=== PATIENT | male | born 1935 | race Caucasian/White ===

== ENCOUNTER 2017-12-27 17:33 | Inpatient (IN) | payer OTHER ==
[~2017-12-27] VITALS: Ht 177.8 cm; Wt 87.3 kg
[2017-12-27] VITALS (27 sets, daily range): BP systolic 82–142; BP diastolic 41–78; BMI 31.5
--- NOTE | ~2017-12-27 | CN ---
PATIENT NAME:ISELA YUNG MEDICAL RECORD: [id number] : 37 LOCATION:[facility]2309 ADMIT DATE: 12/27/17 ACCOUNT: [id number] CONSULTING PHYSICIAN: KAY MORENO MD REFERRING PHYSICIAN: JESSICA MARTINEZ MD DATE OF CONSULTATION: 12/31/2017 Cardiology Consultation DIAGNOSES: 1. Paroxysmal atrial fibrillation. 2. Pulmonary emboli. 3. Deep venous thrombosis. 4. Anticoagulation. HISTORY OF PRESENT ILLNESS: Mr. Yung presents with shortness of breath, found to have pulmonary emboli as well as found to have deep vein thrombosis. He has had episodes of heart rates up to the 200. This is an SVT versus an atrial fibrillation. He was started on sotalol. He has had no further episodes. His echocardiogram was with normal ejection fraction, normal left atrial chamber size. PHYSICAL EXAMINATION: GENERAL APPEARANCE: Well-nourished, well-developed, appears stated age. Level of distress, comfortable. PSYCHIATRIC: Mental status, alert, normal affect. Orientation, oriented to time, place and person. EYES: Lids and conjunctiva, noninjected. No discharge, no pallor. ENT: Lips, teeth, gums, normal dentition. Oropharynx, no cyanosis, no pallor. NECK: Carotid arteries, bilateral normal upstroke, no bruits, no thrills. JUGULAR VEINS: No jugular venous pressure or distention. CERVICAL LYMPH NODES: Nontender, nonenlarged. THYROID: Not enlarged. Nontender. No nodules. LUNGS: Respiratory effort, unlabored. CHEST: Normal curvature. No thoracic deformity. No chest wall tenderness. Percussion, resonant. Auscultation, clear. No wheezes, no rales, no rhonchi. CARDIOVASCULAR: Precordial exam, nondisplaced. No heaves or pericardial thrills. Rate and rhythm, regular. Heart sounds, normal S1, normal S2. No S3, no gallop, no rub. Systolic murmur, not heard. Diastolic murmur, not heard. EXTREMITIES: No cyanosis, no edema. Peripheral pulses, full and equal in all extremities, except as noted. No bruits appreciated. ABDOMEN: Soft, nondistended. Normal aorta. No bruit. Nontender. No masses. Liver, nontender, no hepatomegaly. Spleen, nontender, no splenomegaly. MUSCULOSKELETAL: No joint tenderness. No joint swelling. No erythema. NEUROLOGICAL: Normal gait, normal strength, normal tone. SKIN: Warm and dry. OVERALL IMPRESSION: Supraventricular tachycardia, treated with sotalol stable and continue sotalol. At this time, no other cardiac workup or treatment is necessary. TRANSINT:[id number] Voice Confirmation ID: [id number] DOCUMENT ID: [id number] CONSULT REPORT [id number] ISELA YUNG, KAY FLORES at 0956 CC: [id number] DICTATION DATE: 01/01/18 0839 IMPLANT COORDINATOR: 01/01/18 1316 ADM IN [facility] [address] [place] [address]
--- NOTE | ~2017-12-27 | HEMODYNAMI ---
PATIENT:ISELA YUNG MEDICAL RECORD: [id number] : 37 LOCATION:[facility] [place] D230 ADMISSION DATE: 12/27/17 Generatedon:12/30/201712:18 Patient name: ISELA YUNG Patient #: [id number] SSN: : Date of study: 12/30/2017 Page: Of Hemodynamic Procedure Report Patient Data Patient Demographics Procedure consent was obtained First Name: ISELA Gender: Male Last Name: AGA : 1935 Patient #: [id number] Age: 82 year(s) Race: Unknown Additional ID: [id number] Contact details [address]: [address] [place] [address] State: [place] City: [place] Zip code: [address] Past Medical History Allergies Allergen Reaction Date Comments Reported Penicillins 12/30/2017 Admission Admission Data Admission Date: 12/27/2017 Admission Time: 17:33 Room #: 2309 Weight (lbs.): 209 Weight (kg.): 94.8 Procedure Procedure Types Cath Procedure Peripheral Cath Diagnostic Procedure Cath Peripheral Venography IVC/SVC Inferior Venacava Filter Procedure Description Procedure Date Procedure Date: 12/30/2017 Procedure Start Time: 11:48 Procedure Staff Name Function Slade Oliveros MD Performing Physician Joseline Self RT Corporate Fitness Program Coordinator Joseline Self RT Monitor Desi Brumfield RN Nurse Deepa Carr RN Nurse Hari Santoro RT Scrub Procedure Data Cath Procedure Fluoroscopy Diagnostic fluoroscopy Total fluoroscopy Time: 2 time: 2 min min Diagnostic fluoroscopy Total fluoroscopy dose: 273 dose: 273 mGy mGy Contrast Material Contrast Material Type Amount (ml) Isovue 300 25 Procedure Medications Medication Administration Route Dosage Fentanyl I.V. 25 mcg Versed I.V. 0.5 mg Lidocaine 1% added to field 20 Heparin Flush Bag added to field 1 bags (1000units/500ml NS) Hemodynamics Rest Heart Rate: 95 (bpm) Snapshots Pre Cath Intra NCS Post Cath Vital Signs Time Heart Resp SPO2 etCO2 NIBP (mmHg) Rhythm Pain Sedation Rate (ipm) (%) (mmHg) Status Level (bpm) 11:28:48 92 24 96 15.1 113/66(101) A-Fib 0 (11) 9(A) , No pain 11:33:00 96 25 96 14.3 129/61(97) A-Fib 0 (11) 9(A) , No pain 11:37:10 96 26 96 15.9 127/64(95) A-Fib 0 (11) 9(A) , No pain 11:41:20 100 25 97 17.4 131/64(86) A-Fib 0 (11) 9(A) , No pain 11:45:32 102 25 97 16.6 118/70(89) A-Fib 0 (11) 9(A) , No pain 11:49:36 96 23 98 18.1 108/58(87) A-Fib 0 (11) 9(A) , No pain 11:53:49 97 21 98 21.9 112/57(85) A-Fib 0 (11) 9(A) , No pain 11:57:57 109 25 97 19.6 112/60(90) A-Fib 0 (11) 9(A) , No pain 12:02:07 109 23 97 18.9 111/61(84) A-Fib 0 (11) 9(A) , No pain 12:06:09 108 23 97 18.9 106/61(88) A-Fib 0 (11) 9(A) , No pain 12:10:17 107 23 97 17.3 113/58(77) A-Fib 0 (11) 9(A) , No pain 12:14:29 105 25 95 12.1 104/53(72) A-Fib 0 (11) 9(A) , No pain Medications Time Medication Route Dose Verified Delivered Reason Notes Effect iveness by by 11:48:38 Fentanyl I.V. 25 Slade Arenas for mcg Domo Carr RN sedation 11:48:48 Versed I.V. 0.5 Slade Arenas for mg Domo Carr RN sedation 11:50:13 Lidocaine 1% added 20ml Slade June to vial Oliveros Domo herman MD, MD 11:50:25 Heparin Flush added 1 Slade June Bag to bags Oliveros Oliveros (1000units/500ml field MD FLORES NS) Procedure Log Time Note 10:49:30 Patient Weight : 209 lbs 10:50:32 Use device set IR Diagnostic 11:16:09 JOHN 180cm wire ([id number]) opened to sterile field. 11:16:10 SHEATH 5FR Amity ([id number]) opened to sterile field. 11:16:11 PERCUTANEOUS ENTRY 19GA needle opened to sterile field. 11:16:12 FILTER Tech LP Vena Cava ([id number]) opened to sterile field. 11:16:13 Tegaderm 4 x 4 (1626W) opened to sterile field. 11:16:14 Sterile Angiographic Pack opened to sterile field. 11:16:15 Bag Decanter (2001S) opened to sterile field. 11:16:23 - 11:27:18 Time tracking: Regular hours (M-F 7:00 - 5:00) 11:27:27 Plan of Care:Hemodynamics will remain stable., Cardiac rhythm will remain stable., Comfort level will be maintained., Respiratory function will remain adequate., Patient/ family verbilizes understanding of procedure., Procedure tolerated without complication., Recovers from procedure without complications.. 11:27:35 Patient received from ICU to IR Alert and oriented. Tansferred to table in Supine position. 11:27:39 Correct patient and procedure confirmed by team. 11:27:42 Signed procedure consent form obtained from patient. 11:27:44 ECG and BP/O2 sat monitors applied to patient. 11:27:46 Vital chart was started 11:27:47 Baseline sample Acquired. 11:27:49 Full Disclosure recording started 11:27:50 - 11:27:57 H&P Date Dictated: 12/30/2017 Within 30 days and on chart.. 11:27:58 Pre-procedure instructions explained to patient. 11::59 Pre-op teaching completed and patient verbalized understanding. 11::02 Family in waiting room. 11::04 Patient NPO since Midnight. 11::28 Patient allergic to Penicillins 11:28:33 Is the patient allergic to Iodine/contrast media? No. 11::37 Is patient on blood thinner?Yes 11::44 ACC The patient was administered the following blood thiners within the last 24 hours: ACCHeparin 11:28:47 Patient diabetic? Yes. 11:28:50 If diabetic: On Metformin? Yes 11:30:12 If on Metformin: Last Dose? 12/28/2017 11:30:17 - 11:30:27 ----Pre-sedation anethsthesia assessment.---- 11:30:33 Previous problem with sedation/anesthesia? No ? 11:30:36 Snore? No 11:30:38 Sleep apnea? No 11:30:41 Deviated septum? No 11:30:43 Opens mouth fully? Yes 11:30:45 Sticks out tongue? Yes 11:31:11 Airway obstruction? No but has heart disease, previous cabg 11:31:16 Dentures? No ? 11:31:32 IV patent on arrival in left forearm, port with D5/.45%NaCl at [facility]. 11:32:03 Right neck area was prepped with chlora-prep and draped in sterile fashion 11:32:12 - 11:47:09 Physician arrived 11:48:02 --------ALL STOP TIME OUT------ 11:48:03 Final Timeout: patient, procedure, and site verified with staff and physician. All members of the team are in agreement. 11:48:16 Procedure started. 11:48:30 Local anesthetic to right IJ vein with Lidocaine 1% by Slade Oliveros MD.INITIAL ACCESS ONLY 11:48:38 Fentanyl 25 mcg I.V. was administered by Deepa Carr RN; for sedation ; 11:48:48 Versed 0.5 mg I.V. was administered by Deepa Carr RN; for sedation; 11:50:08 Venous access obtained using ultrasound guidance. 11:50:13 Lidocaine 1% 20ml vial added to field was administered by Slade Oliveros MD; ; 11:50:25 Heparin Flush Bag (1000units/500ml NS) 1 bags added to field was administered by Slade Oliveros MD; ; 11:53:51 GLIDE CATHETER 5FR ANGLED 100cm (CG508) opened to sterile field. 12:08:38 Vena Tech LP IVC filter was placed below renal veins. 12:08:47 Procedure ended.(Physican Out) 12:08:55 Fluoroscopy time 02.00 minutes. 12:08:59 Fluoroscopy dose: 273 mGy 12:08:59 Flurop Dose total: 273 12:09:23 Contrast amount:Isovue 300 25ml. 12:09:25 Procedure and supply charges have been captured, reviewed, submitted an d are correct. 12:17:52 Report given to ICU. 12:18:26 Vital chart was stopped Device Usage Item Name Manufacture Quantity Catalog Hospital Part Current Minimal Lot# / Number Charge Number Stock Stock Serial# Code JOHN 180cm [employer] 1 [id number] wire ([id number]) SHEATH 5FR Terumo 1 [id number] 160099 015928 [id number] 40 Amity ([id number]) PERCUTANEOUS [employer] 1 [id number] 550560 [id number] 5 [id number] ENTRY 19GA needle FILTER Tech B. Reyes 1 [id number] 781386 603692 847880 5 55488 LP Vena Cava ([id number]) Tegaderm 4 x 3M 1 1626W 683679 121432 513482 5 4 (1626W) Sterile Cardinal 1 [id number] 798717 5 Angiographic Health Pack Bag Decanter Microtek 1 2001S 825345 96516 259659 5 () [employer] SHAVON Terumo 1 [id number] 774726 56935 [id number] 4 CATHETER 5FR ANGLED 100cm (CG508) Signature Audit [place] Stage Time Signature Unsigned Intra-Procedure 12/30/2017 Joseline Self 12:18:15 PM RT(R) Signatures Monitor : Joseline Self RT Signature : Date : Time : [address] [place] [address]
--- NOTE | ~2017-12-27 | EC ---
PATIENT:ISELA YUNG DATE OF SERVICE: 12/27/17 SEX: M MEDICAL RECORD: [id number] DATE OF : 37 LOCATION:D[facility] D.230 AGE OF PATIENT: 82 ADMISSION DATE: 12/27/17 REFERRING PHYSICIAN: INTERPRETING PHYSICIAN: KAY GASTELUM MD ECHOCARDIOGRAM REPORT ECHO CHARGES 4 ECHO COMPLETE Date: 12/28 CLINICAL DIAGNOSIS: CARDIAC HISTORY ASSESS EF HX OF CAD/CABG ECHOCARDIOGRAPHIC MEASUREMENTS (adult normal given) AC root (d.<3.7cm) 5.2 cm LV Septum d (<1.2 cm> 1.3 cm Valve Excursion 2.1 cm LV Septum (systole) 1.5 cm Left Atria (s.<4.0cm> 3.9 cm LVPW d(<1.2cm) 1.2 cm RV (d.<2.3cm) 6.7 cm LVPW (sytole) 1.7 cm LV diastole(<5.6CM) 5.0 cm MV E-F(>70mm/sec) cm LV systole 4.0 cm LVOT Diameter 2.0 cm MV exc.(>10mm) 2.2 cm Est.ejection fraction (50-75%) % DOPPLER: LVIT cm/sec A 87.0 cm/sec E 54.0 cm/sec LA cm/sec RVSP 35 mmHg LVOT 80 cm/sec AOP1/2T 592 m/s Asc. Ao 137 cm/sec RVOT 58 cm/sec RA cm/sec PA 119 cm/sec AV Gradient Peak 7351 mmHg AV Mean 3.69 mmHg AV Area 2.1 cm MV Gradient Peak 3.95 mmHg MV Mean 1.68 mmHg MV Area cm COMMENTS: Supervisor Network Control Operators: Mia CEDILLO Multigrapher: 1 Dr. Gastelum TAPE# SUPERVISING PRODUCER Pericardial Effusion N DATE OF SERVICE: Echocardiogram FINDINGS: 1. Left ventricular chamber size is within normal limits. Left ventricular systolic function is normal. Overall ejection fraction estimated at 50%. 2. Left atrium is within normal limits at 3.9 cm. Right atrium and right ventricular chamber sizes are moderately dilated. 3. Valvular structures have normal structure and motion. ECHOCARDIOGRAM REPORT [id number] ISELA YUNG 4. Doppler interrogation reveals mild mitral regurgitation, mild tricuspid regurgitation, no other valvular insufficiency or stenosis. 5. No evidence of pericardial effusion or left ventricular thrombus. TRANSINT:[id number] Voice Confirmation ID: [id number] DOCUMENT ID: [id number] KAY GASTELUM MD at 0956 CC: [id number] DICTATION DATE: 12/29/17 1058 FOOT MITER OPERATOR: 12/29/17 1514 ADM IN [facility] [address] [place] [address]
[2017-12-27 18:56] LABS: ALBUMIN 1.5 g/dL (3.4-5.0); ANION GAP 21.7 mmol/L (8-16); BILIRUBIN - TOTAL 0.46 mg/dL (0.2-1.3); CARBON DIOXIDE 16.3 mmol/L (21.0-32.0); CREATININE - SERUM 1.2 mg/dL (0.6-1.3); PROTEIN - SERUM 4.5 g/dL (6.4-8.2)
[2017-12-27 19:00] LABS: CALCIUM 6.4 mg/dL (8.5-10.1)
[2017-12-27 19:43] LABS: HEMATOCRIT 21.9 % (42.0-54.0); MCH 31.7 pg (26.0-34.0); MCV 99.1 fL (80.0-100.0); MEAN PLATELET VOLUME 9.7 fL (7.4-10.4); PLATELET COUNT 68 10x3/uL (130-400); RBC 2.21 10x6/uL (4.20-6.10); RDW 17.4 % (11.5-14.5); WBC 22.3 10x3/uL (4.8-10.8)
[2017-12-27 20:09] LABS: EOSINOPHILS 2 % (0-7); LYMPHOCYTES 4 % (15-50); MONOCYTES 2 % (2-11); NEUTROPHILS 83 % (40-80); PLATELET ESTIMATE DECREASED
[2017-12-27 22:23] LABS: HEMATOCRIT 24.7 % (42.0-54.0); HEMOGLOBIN 7.9 g/dL (13.5-17.5); MCH 31.1 pg (26.0-34.0); MCV 97.2 fL (80.0-100.0); MEAN PLATELET VOLUME 9.6 fL (7.4-10.4); RBC 2.54 10x6/uL (4.20-6.10); RDW 17.7 % (11.5-14.5); WBC 22.7 10x3/uL (4.8-10.8)
[2017-12-27 22:31] LABS: INR 1.61 (0.85-1.17); PROTIME 18.6 SECONDS (11.6-15.0)
[2017-12-27 22:49] LABS: APTT > 200.0 SECONDS (22.8-39.4)
[2017-12-28] VITALS (89 sets, daily range): BP systolic 75–116; BP diastolic 41–93
[2017-12-28 05:45] LABS: BASOPHILS 0 % (0-2); EOSINOPHILS 0 % (0-7); HEMATOCRIT 28.7 % (42.0-54.0); HEMOGLOBIN 9.2 g/dL (13.5-17.5); IMMATURE GRANULOCYTES 4.3 % (0-5); MCH 30.6 pg (26.0-34.0); MCHC 32.1 g/dL (31.0-37.0); MCV 95.3 fL (80.0-100.0); MEAN PLATELET VOLUME 10.4 fL (7.4-10.4); MONOCYTES 5.8 % (2-11); NEUTROPHILS 82.9 % (40-80); PLATELET COUNT 70 10x3/uL (130-400); RBC 3.01 10x6/uL (4.20-6.10); RDW 18.3 % (11.5-14.5); WBC 24.3 10x3/uL (4.8-10.8)
[2017-12-28 06:00] LABS: ALBUMIN 1.4 g/dL (3.4-5.0); ALKALINE PHOSPHATASE 86 U/L (46-116); CALC OSMOLALITY 278 mosm/kg (275-300); CARBON DIOXIDE 19.2 mmol/L (21.0-32.0); CHLORIDE - SERUM 108 mmol/L (98-107); GLUCOSE 93 mg/dL (74-106); POTASSIUM - SERUM 3.8 mmol/L (3.5-5.1); PROTEIN - SERUM 4.4 g/dL (6.4-8.2); SODIUM 139 mmol/L (136-145); UREA NITROGEN 16 mg/dL (7-18); eGFR NON AFRICAN AMERICAN 76 mL/min (90-120)
[2017-12-28 06:08] LABS: ALT (SGPT) 17 U/L (10-68); CALCIUM 6.4 mg/dL (8.5-10.1)
[2017-12-28 14:05] LABS: % SATURATION 19 % (15-55); IRON 19 ug/dl (35-150); TOTAL IRON BIND CAPACITY 97 ug/dl (260-445); UNSAT IRON BIND CAPACITY 78 ug/dl (150-375)
[2017-12-28 15:12] LABS: APPEARANCE CLEAR (CLEAR); BILIRUBIN NEGATIVE (NEGATIVE); COLOR YELLOW (YELLOW); GLUCOSE NEGATIVE (NEGATIVE); KETONE NEGATIVE (NEGATIVE); NITRITE NEGATIVE (NEGATIVE); PROTEIN TRACE mg/dL (NEGATIVE); SPECIFIC GRAVITY 1.015 (1.005-1.020); UROBILINOGEN NORMAL (NORMAL)
[2017-12-28 15:13] LABS: RED CELLS - URINE 0-5 /hpf (0-5)
[2017-12-28 15:14] LABS: AMORPHOUS SEDIMENT <1+ /lpf (NONE SEEN); BACTERIA MODERATE /hpf (NONE SEEN)
[2017-12-29] VITALS (63 sets, daily range): BP systolic 91–128; BP diastolic 50–78
[2017-12-29 00:50] LABS: HEMOGLOBIN 8.3 g/dL (13.5-17.5); MCH 30.1 pg (26.0-34.0); MCHC 31.9 g/dL (31.0-37.0); MCV 94.2 fL (80.0-100.0); MEAN PLATELET VOLUME 10.6 fL (7.4-10.4); RBC 2.76 10x6/uL (4.20-6.10); RDW 18.2 % (11.5-14.5); WBC 19.8 10x3/uL (4.8-10.8)
[2017-12-29 05:35] LABS: BASOPHILS 0.1 % (0-2); EOSINOPHILS 0.1 % (0-7); HEMATOCRIT 26.6 % (42.0-54.0); HEMOGLOBIN 8.6 g/dL (13.5-17.5); IMMATURE GRANULOCYTES 0.4 % (0-5); LYMPHOCYTES 8.8 % (15-50); MCH 30.7 pg (26.0-34.0); MCHC 32.3 g/dL (31.0-37.0); MEAN PLATELET VOLUME 10.1 fL (7.4-10.4); MONOCYTES 4.9 % (2-11); NEUTROPHILS 85.7 % (40-80); PLATELET COUNT 53 10x3/uL (130-400); RDW 18.6 % (11.5-14.5); WBC 17.8 10x3/uL (4.8-10.8)
[2017-12-29 05:45] LABS: ALKALINE PHOSPHATASE 66 U/L (46-116); BILIRUBIN - TOTAL 0.61 mg/dL (0.2-1.3); CALC OSMOLALITY 288 mosm/kg (275-300); CARBON DIOXIDE 20.6 mmol/L (21.0-32.0); CHLORIDE - SERUM 112 mmol/L (98-107); CREATININE - SERUM 0.7 mg/dL (0.6-1.3); GLUCOSE 93 mg/dL (74-106); PROTEIN - SERUM 4.4 g/dL (6.4-8.2); SODIUM 145 mmol/L (136-145); UREA NITROGEN 12 mg/dL (7-18); eGFR NON AFRICAN AMERICAN > 90 mL/min (90-120)
[2017-12-29 05:47] LABS: ALBUMIN 1.8 g/dL (3.4-5.0); ALT (SGPT) 23 U/L (10-68)
[2017-12-29 05:48] LABS: POTASSIUM - SERUM 2.9 mmol/L (3.5-5.1)
[2017-12-30] VITALS (24 sets, daily range): BP systolic 91–119; BP diastolic 50–87; Ht 177.8 cm; Wt 87.3 kg
[2017-12-30 04:38] LABS: BASOPHILS 0.1 % (0-2); EOSINOPHILS 0.1 % (0-7); IMMATURE GRANULOCYTES 0.3 % (0-5); LYMPHOCYTES 12.9 % (15-50); MCH 30.5 pg (26.0-34.0); MCV 95.4 fL (80.0-100.0); MEAN PLATELET VOLUME 10.5 fL (7.4-10.4); NEUTROPHILS 82.6 % (40-80); RBC 2.62 10x6/uL (4.20-6.10); RDW 18.2 % (11.5-14.5)
[2017-12-30 04:47] LABS: PLATELET COUNT 39 10x3/uL (130-400); WBC 10.2 10x3/uL (4.8-10.8)
[2017-12-30 05:02] LABS: ALBUMIN 2.1 g/dL (3.4-5.0); ALKALINE PHOSPHATASE 57 U/L (46-116); ALT (SGPT) 19 U/L (10-68); BILIRUBIN - TOTAL 0.73 mg/dL (0.2-1.3); CARBON DIOXIDE 22.6 mmol/L (21.0-32.0); CHLORIDE - SERUM 111 mmol/L (98-107); CREATININE - SERUM 0.6 mg/dL (0.6-1.3); GLUCOSE 108 mg/dL (74-106); POTASSIUM - SERUM 3.5 mmol/L (3.5-5.1); PROTEIN - SERUM 4.4 g/dL (6.4-8.2); SODIUM 145 mmol/L (136-145); eGFR NON AFRICAN AMERICAN > 90 mL/min (90-120)
[2017-12-30 05:14] LABS: CALC OSMOLALITY 287 mosm/kg (275-300); UREA NITROGEN 8 mg/dL (7-18)
[2017-12-30 05:15] LABS: CALCIUM 6.3 mg/dL (8.5-10.1)
[2017-12-30 07:59] LABS: INR 1.37 (0.85-1.17); PROTIME 16.4 SECONDS (11.6-15.0)
[2017-12-30 09:58] LABS: D-DIMER-QUANTITATIVE 2.78 ug/mLFEU (0.20-0.54)
[2017-12-30 10:08] LABS: % SATURATION 17 % (15-55); IRON 30 ug/dl (35-150); TOTAL IRON BIND CAPACITY 169 ug/dl (260-445); UNSAT IRON BIND CAPACITY 139 ug/dl (150-375)
[2017-12-30 14:41] LABS: BASOPHILS 0 % (0-2); EOSINOPHILS 0 % (0-7); HEMATOCRIT 25.2 % (42.0-54.0); IMMATURE GRANULOCYTES 0.5 % (0-5); LYMPHOCYTES 15.2 % (15-50); MCH 30.5 pg (26.0-34.0); MCHC 31.7 g/dL (31.0-37.0); MCV 96.2 fL (80.0-100.0); MEAN PLATELET VOLUME 10.6 fL (7.4-10.4); MONOCYTES 4.5 % (2-11); NEUTROPHILS 79.8 % (40-80); RBC 2.62 10x6/uL (4.20-6.10); WBC 8.3 10x3/uL (4.8-10.8)
[2017-12-30 14:47] LABS: PLATELET COUNT 39 10x3/uL (130-400)
[2017-12-31] VITALS (24 sets, daily range): BP systolic 82–126; BP diastolic 51–65
[2017-12-31] MEDS ORDERED: MACROBID100 MG (05:14)
[2017-12-31] MEDS ORDERED: MACRODANTIN100 MG PO (05:17)
[2017-12-31] MEDS ORDERED: MUPIROCIN22 GM (05:18)
[2017-12-31 06:42] LABS: BASOPHILS 0 % (0-2); EOSINOPHILS 0.2 % (0-7); HEMATOCRIT 22.1 % (42.0-54.0); IMMATURE GRANULOCYTES 0.8 % (0-5); LYMPHOCYTES 21.2 % (15-50); MCH 30.4 pg (26.0-34.0); MCHC 31.7 g/dL (31.0-37.0); MCV 96.1 fL (80.0-100.0); MEAN PLATELET VOLUME 12.3 fL (7.4-10.4); MONOCYTES 6.9 % (2-11); NEUTROPHILS 70.9 % (40-80); RDW 18.1 % (11.5-14.5)
[2017-12-31 06:48] LABS: WBC 6.1 10x3/uL (4.8-10.8)
[2017-12-31 06:49] LABS: PLATELET COUNT 42 10x3/uL (130-400)
[2017-12-31 06:58] LABS: ALBUMIN 2.3 g/dL (3.4-5.0); ALKALINE PHOSPHATASE 45 U/L (46-116); ALT (SGPT) 15 U/L (10-68); BILIRUBIN - TOTAL 0.85 mg/dL (0.2-1.3); CALC OSMOLALITY 286 mosm/kg (275-300); CARBON DIOXIDE 20.3 mmol/L (21.0-32.0); CHLORIDE - SERUM 109 mmol/L (98-107); CREATININE - SERUM 0.7 mg/dL (0.6-1.3); GLUCOSE 128 mg/dL (74-106); INR 3.12 (0.85-1.17); POTASSIUM - SERUM 3.3 mmol/L (3.5-5.1); PROTEIN - SERUM 4.6 g/dL (6.4-8.2); PROTIME 31.3 SECONDS (11.6-15.0); SODIUM 144 mmol/L (136-145); UREA NITROGEN 7 mg/dL (7-18); eGFR NON AFRICAN AMERICAN > 90 mL/min (90-120)
[2017-12-31 07:04] LABS: CALCIUM 6.9 mg/dL (8.5-10.1)
[2017-12-31 08:21] LABS: FOLATE (FOLIC ACID) - SERUM 3.9 ng/mL (>3.0)
[2018-01-01] VITALS (24 sets, daily range): BP systolic 83–116; BP diastolic 44–71
[2018-01-01 04:22] LABS: BASOPHILS 0.2 % (0-2); EOSINOPHILS 0.4 % (0-7); IMMATURE GRANULOCYTES 1.1 % (0-5); LYMPHOCYTES 25.3 % (15-50); MCH 30.3 pg (26.0-34.0); MCHC 32.6 g/dL (31.0-37.0); MEAN PLATELET VOLUME 12.6 fL (7.4-10.4); MONOCYTES 8.4 % (2-11); NEUTROPHILS 64.6 % (40-80); RDW 17.1 % (11.5-14.5); WBC 5.5 10x3/uL (4.8-10.8)
[2018-01-01 04:23] LABS: HEMATOCRIT 27.9 % (42.0-54.0); HEMOGLOBIN 9.1 g/dL (13.5-17.5); PLATELET COUNT 40 10x3/uL (130-400)
[2018-01-01 04:26] LABS: PROTIME 36.4 SECONDS (11.6-15.0)
[2018-01-01 04:27] LABS: APTT 97.9 SECONDS (22.8-39.4)
[2018-01-01 04:32] LABS: ALBUMIN 2.5 g/dL (3.4-5.0); ALKALINE PHOSPHATASE 52 U/L (46-116); ALT (SGPT) 14 U/L (10-68); BILIRUBIN - TOTAL 0.96 mg/dL (0.2-1.3); CALC OSMOLALITY 288 mosm/kg (275-300); CALCIUM 6.9 mg/dL (8.5-10.1); CARBON DIOXIDE 25.9 mmol/L (21.0-32.0); CHLORIDE - SERUM 111 mmol/L (98-107); CREATININE - SERUM 0.7 mg/dL (0.6-1.3); GLUCOSE 135 mg/dL (74-106); POTASSIUM - SERUM 3.1 mmol/L (3.5-5.1); PROTEIN - SERUM 4.7 g/dL (6.4-8.2); SODIUM 145 mmol/L (136-145); UREA NITROGEN 6 mg/dL (7-18); eGFR NON AFRICAN AMERICAN > 90 mL/min (90-120)
[2018-01-01 04:34] LABS: INR 3.77 (0.85-1.17)
[2018-01-01] MEDS ORDERED: PLAVIX75 MG PO (23:58)
[2018-01-01] MEDS ORDERED: ZOFRAN ODT4 MG/UDTAB SL (23:58)
[2018-01-01] MEDS ORDERED: ELIQUIS2.5 MG PO (23:59)
[2018-01-01] MEDS ORDERED: METOPROLOL TAR100 M1 PO (23:59)
[2018-01-02] VITALS (24 sets, daily range): BP systolic 89–114; BP diastolic 42–72
[2018-01-02] MEDS ORDERED: CARDIZEM60 MG PO
[2018-01-02] MEDS ORDERED: LANOXIN125 MCG PO (00:01)
[2018-01-02] MEDS ORDERED: FLOMAX0.4 MG PO (00:01)
[2018-01-02] MEDS ORDERED: LIPITOR20 MG PO (00:02)
[2018-01-02] MEDS ORDERED: GLUCOPHAGE XR750 MG PO (00:03)
[2018-01-02] MEDS ORDERED: GLYBURIDE1.25 MG PO (00:03)
[2018-01-02] MEDS ORDERED: CARAFATE1 G PO (00:03)
[2018-01-02] MEDS ORDERED: KLOR-CON M2020 MEQ PO (00:04)
[2018-01-02] MEDS ORDERED: PROTONIX40 MG PO (00:04)
[2018-01-02] MEDS ORDERED: IMODIUM2 MG PO (00:05)
[2018-01-02] MEDS ORDERED: HYDROCODON-ACE1 EAC7 PO (00:06)
[2018-01-02] MEDS ORDERED: GLIPIZIDE10 MG PO (00:07)
[2018-01-02] MEDS ORDERED: ENTRESTO 24 MG1 EACH PO (00:07)
[2018-01-02 00:50] LABS: HEMATOCRIT 25.6 % (42.0-54.0); HEMOGLOBIN 8.3 g/dL (13.5-17.5); MCH 30.5 pg (26.0-34.0); MCHC 32.4 g/dL (31.0-37.0); MCV 94.1 fL (80.0-100.0); MEAN PLATELET VOLUME 10.9 fL (7.4-10.4); RBC 2.72 10x6/uL (4.20-6.10); RDW 17.2 % (11.5-14.5); WBC 5.4 10x3/uL (4.8-10.8)
[2018-01-02 05:15] LABS: BASOPHILS 0 % (0-2); EOSINOPHILS 0.3 % (0-7); HEMATOCRIT 25.9 % (42.0-54.0); HEMOGLOBIN 8.4 g/dL (13.5-17.5); IMMATURE GRANULOCYTES 0.5 % (0-5); LYMPHOCYTES 23.4 % (15-50); MCH 30.7 pg (26.0-34.0); MCHC 32.4 g/dL (31.0-37.0); MCV 94.5 fL (80.0-100.0); MEAN PLATELET VOLUME 11.8 fL (7.4-10.4); NEUTROPHILS 69.8 % (40-80); RBC 2.74 10x6/uL (4.20-6.10); RDW 17.3 % (11.5-14.5); WBC 5.9 10x3/uL (4.8-10.8)
[2018-01-02 05:28] LABS: PROTIME 29.7 SECONDS (11.6-15.0)
[2018-01-02 05:30] LABS: APTT 93.5 SECONDS (22.8-39.4)
[2018-01-02 05:32] LABS: PLATELET COUNT 35 10x3/uL (130-400)
[2018-01-02 05:33] LABS: INR 2.91 (0.85-1.17)
[2018-01-02 05:58] LABS: ALBUMIN 2.4 g/dL (3.4-5.0); ALKALINE PHOSPHATASE 49 U/L (46-116); ALT (SGPT) 14 U/L (10-68); CALC OSMOLALITY 289 mosm/kg (275-300); CHLORIDE - SERUM 112 mmol/L (98-107); CREATININE - SERUM 0.7 mg/dL (0.6-1.3); GLUCOSE 147 mg/dL (74-106); MAGNESIUM - SERUM 1.1 mg/dL (1.8-2.4); PHOSPHOROUS 1.9 mg/dL (2.5-4.9); PRO BNP 16731 pg/mL (0-450); PROTEIN - SERUM 4.4 g/dL (6.4-8.2); SODIUM 145 mmol/L (136-145); UREA NITROGEN 7 mg/dL (7-18); eGFR NON AFRICAN AMERICAN > 90 mL/min (90-120)
[2018-01-02 06:06] LABS: CALCIUM 6.9 mg/dL (8.5-10.1); POTASSIUM - SERUM 3.8 mmol/L (3.5-5.1); TROPONIN-I 0.278 ng/mL (0.000-0.060)
[2018-01-03] VITALS (24 sets, daily range): BP systolic 92–122; BP diastolic 44–85
[2018-01-03 04:57] LABS: BASOPHILS 0 % (0-2); EOSINOPHILS 0.7 % (0-7); HEMOGLOBIN 8.3 g/dL (13.5-17.5); IMMATURE GRANULOCYTES 0.4 % (0-5); LYMPHOCYTES 18.3 % (15-50); MCH 30.2 pg (26.0-34.0); MCHC 31.9 g/dL (31.0-37.0); MCV 94.5 fL (80.0-100.0); MEAN PLATELET VOLUME 11.4 fL (7.4-10.4); MONOCYTES 5.8 % (2-11); NEUTROPHILS 74.8 % (40-80); RBC 2.75 10x6/uL (4.20-6.10)
[2018-01-03 04:58] LABS: PLATELET COUNT 42 10x3/uL (130-400); WBC 7.6 10x3/uL (4.8-10.8)
[2018-01-03 05:12] LABS: INR 3.01 (0.85-1.17); PROTIME 30.5 SECONDS (11.6-15.0)
[2018-01-03 05:14] LABS: APTT 97.8 SECONDS (22.8-39.4)
[2018-01-03 05:52] LABS: ALBUMIN 2.6 g/dL (3.4-5.0); ALKALINE PHOSPHATASE 45 U/L (46-116); ALT (SGPT) 12 U/L (10-68); CHLORIDE - SERUM 110 mmol/L (98-107); CREATININE - SERUM 0.6 mg/dL (0.6-1.3); PHOSPHOROUS 2.2 mg/dL (2.5-4.9); POTASSIUM - SERUM 3.3 mmol/L (3.5-5.1); PRO BNP 20328 pg/mL (0-450); PROTEIN - SERUM 4.6 g/dL (6.4-8.2); SODIUM 143 mmol/L (136-145); UREA NITROGEN 8 mg/dL (7-18); eGFR NON AFRICAN AMERICAN > 90 mL/min (90-120)
[2018-01-03 05:54] LABS: CALC OSMOLALITY 281 mosm/kg (275-300); GLUCOSE 80 mg/dL (74-106)
[2018-01-04] VITALS (25 sets, daily range): BP systolic 92–137; BP diastolic 45–100
[2018-01-04 05:59] LABS: CALCIUM 7.3 mg/dL (8.5-10.1); CARBON DIOXIDE 26.1 mmol/L (21.0-32.0); CHLORIDE - SERUM 109 mmol/L (98-107); CREATININE - SERUM 0.7 mg/dL (0.6-1.3); MAGNESIUM - SERUM 1.2 mg/dL (1.8-2.4); PRO BNP 11453 pg/mL (0-450); SODIUM 144 mmol/L (136-145); UREA NITROGEN 8 mg/dL (7-18); eGFR NON AFRICAN AMERICAN > 90 mL/min (90-120)
[2018-01-04 06:01] LABS: CALC OSMOLALITY 286 mosm/kg (275-300); GLUCOSE 127 mg/dL (74-106); INR 2.96 (0.85-1.17); PHOSPHOROUS 2.9 mg/dL (2.5-4.9); POTASSIUM - SERUM 2.9 mmol/L (3.5-5.1); PROTIME 30.1 SECONDS (11.6-15.0)
[2018-01-04 06:03] LABS: APTT 101.6 SECONDS (22.8-39.4)
[2018-01-04 10:41] LABS: HEMATOCRIT 26.2 % (42.0-54.0); HEMOGLOBIN 8.3 g/dL (13.5-17.5); MCH 30.2 pg (26.0-34.0); MCHC 31.7 g/dL (31.0-37.0); MCV 95.3 fL (80.0-100.0); MEAN PLATELET VOLUME 12.5 fL (7.4-10.4); RBC 2.75 10x6/uL (4.20-6.10); RDW 17.4 % (11.5-14.5); WBC 7.3 10x3/uL (4.8-10.8)
[2018-01-05] VITALS (24 sets, daily range): BP systolic 99–135; BP diastolic 47–81
[2018-01-05 04:57] LABS: BASOPHILS 0.2 % (0-2); EOSINOPHILS 0.6 % (0-7); HEMATOCRIT 24.4 % (42.0-54.0); HEMOGLOBIN 7.9 g/dL (13.5-17.5); IMMATURE GRANULOCYTES 0.5 % (0-5); LYMPHOCYTES 17.7 % (15-50); MCH 30.5 pg (26.0-34.0); MCHC 32.4 g/dL (31.0-37.0); MCV 94.2 fL (80.0-100.0); MEAN PLATELET VOLUME 11.5 fL (7.4-10.4); MONOCYTES 5.8 % (2-11); NEUTROPHILS 75.2 % (40-80); PLATELET COUNT 58 10x3/uL (130-400); RBC 2.59 10x6/uL (4.20-6.10); RDW 17.1 % (11.5-14.5); WBC 6.4 10x3/uL (4.8-10.8)
[2018-01-05 05:08] LABS: ALBUMIN 2.6 g/dL (3.4-5.0); ALKALINE PHOSPHATASE 40 U/L (46-116); ALT (SGPT) 11 U/L (10-68); BILIRUBIN - TOTAL 1.24 mg/dL (0.2-1.3); CALC OSMOLALITY 284 mosm/kg (275-300); CALCIUM 7.4 mg/dL (8.5-10.1); CARBON DIOXIDE 28.4 mmol/L (21.0-32.0); CHLORIDE - SERUM 108 mmol/L (98-107); CREATININE - SERUM 0.8 mg/dL (0.6-1.3); GLUCOSE 129 mg/dL (74-106); MAGNESIUM - SERUM 1.2 mg/dL (1.8-2.4); PHOSPHOROUS 2.7 mg/dL (2.5-4.9); POTASSIUM - SERUM 3.4 mmol/L (3.5-5.1); PRO BNP 8286 pg/mL (0-450); PROTEIN - SERUM 4.7 g/dL (6.4-8.2); SODIUM 143 mmol/L (136-145); UREA NITROGEN 6 mg/dL (7-18); eGFR NON AFRICAN AMERICAN > 90 mL/min (90-120)
[2018-01-05 06:44] LABS: INR 2.47 (0.85-1.17); PROTIME 26.1 SECONDS (11.6-15.0)
[2018-01-05 06:46] LABS: APTT 99.2 SECONDS (22.8-39.4)
[2018-01-06] VITALS (24 sets, daily range): BP systolic 104–136; BP diastolic 51–77
[2018-01-06 04:02] LABS: BASOPHILS 0 % (0-2); EOSINOPHILS 0.8 % (0-7); IMMATURE GRANULOCYTES 0.3 % (0-5); LYMPHOCYTES 20.8 % (15-50); MCH 30.4 pg (26.0-34.0); MCHC 33.1 g/dL (31.0-37.0); MEAN PLATELET VOLUME 11.1 fL (7.4-10.4); MONOCYTES 6.7 % (2-11); NEUTROPHILS 71.4 % (40-80); PLATELET COUNT 56 10x3/uL (130-400); RDW 16.7 % (11.5-14.5)
[2018-01-06 04:06] LABS: HEMATOCRIT 29.6 % (42.0-54.0); HEMOGLOBIN 9.8 g/dL (13.5-17.5); MCV 91.9 fL (80.0-100.0); RBC 3.22 10x6/uL (4.20-6.10)
[2018-01-06 04:21] LABS: ALBUMIN 2.8 g/dL (3.4-5.0); ALKALINE PHOSPHATASE 40 U/L (46-116); ALT (SGPT) 9 U/L (10-68); BILIRUBIN - TOTAL 1.66 mg/dL (0.2-1.3); CALC OSMOLALITY 280 mosm/kg (275-300); CALCIUM 7.6 mg/dL (8.5-10.1); CARBON DIOXIDE 28.9 mmol/L (21.0-32.0); CHLORIDE - SERUM 106 mmol/L (98-107); CREATININE - SERUM 0.6 mg/dL (0.6-1.3); GLUCOSE 135 mg/dL (74-106); MAGNESIUM - SERUM 1.4 mg/dL (1.8-2.4); PHOSPHOROUS 2.6 mg/dL (2.5-4.9); PRO BNP 7361 pg/mL (0-450); SODIUM 141 mmol/L (136-145); UREA NITROGEN 7 mg/dL (7-18); eGFR NON AFRICAN AMERICAN > 90 mL/min (90-120)
[2018-01-06 04:24] LABS: INR 2.43 (0.85-1.17); PROTIME 25.7 SECONDS (11.6-15.0)
[2018-01-06 04:26] LABS: APTT 91.2 SECONDS (22.8-39.4)
[2018-01-07] VITALS (29 sets, daily range): BP systolic 97–130; BP diastolic 49–87
[2018-01-07 04:30] LABS: BASOPHILS 0 % (0-2); HEMATOCRIT 30.1 % (42.0-54.0); HEMOGLOBIN 9.7 g/dL (13.5-17.5); IMMATURE GRANULOCYTES 0.2 % (0-5); LYMPHOCYTES 20.8 % (15-50); MCH 29.9 pg (26.0-34.0); MCHC 32.2 g/dL (31.0-37.0); MCV 92.9 fL (80.0-100.0); MEAN PLATELET VOLUME 11.1 fL (7.4-10.4); MONOCYTES 8.6 % (2-11); NEUTROPHILS 69.4 % (40-80); PLATELET COUNT 59 10x3/uL (130-400); RBC 3.24 10x6/uL (4.20-6.10); RDW 16.3 % (11.5-14.5); WBC 6.3 10x3/uL (4.8-10.8)
[2018-01-07 04:49] LABS: ALKALINE PHOSPHATASE 41 U/L (46-116); ALT (SGPT) 10 U/L (10-68); CALCIUM 7.9 mg/dL (8.5-10.1); CARBON DIOXIDE 29.2 mmol/L (21.0-32.0); CHLORIDE - SERUM 106 mmol/L (98-107); GLUCOSE 129 mg/dL (74-106); MAGNESIUM - SERUM 1.3 mg/dL (1.8-2.4); PHOSPHOROUS 2.4 mg/dL (2.5-4.9); POTASSIUM - SERUM 3.4 mmol/L (3.5-5.1); PROTEIN - SERUM 5.2 g/dL (6.4-8.2); SODIUM 142 mmol/L (136-145)
[2018-01-07 04:53] LABS: CALC OSMOLALITY 283 mosm/kg (275-300); CREATININE - SERUM 0.8 mg/dL (0.6-1.3); UREA NITROGEN 9 mg/dL (7-18); eGFR NON AFRICAN AMERICAN > 90 mL/min (90-120)
[2018-01-07 08:30] LABS: INR 2.08 (0.85-1.17); PROTIME 22.8 SECONDS (11.6-15.0)
[2018-01-08] VITALS (13 sets, daily range): BP systolic 105–133; BP diastolic 49–66
[2018-01-08 04:41] LABS: BASOPHILS 0 % (0-2); EOSINOPHILS 1.2 % (0-7); HEMATOCRIT 31.8 % (42.0-54.0); HEMOGLOBIN 10.2 g/dL (13.5-17.5); IMMATURE GRANULOCYTES 0.5 % (0-5); LYMPHOCYTES 19.7 % (15-50); MCH 29.9 pg (26.0-34.0); MCHC 32.1 g/dL (31.0-37.0); MCV 93.3 fL (80.0-100.0); MEAN PLATELET VOLUME 11.7 fL (7.4-10.4); MONOCYTES 9.7 % (2-11); NEUTROPHILS 68.9 % (40-80); RBC 3.41 10x6/uL (4.20-6.10); RDW 16.2 % (11.5-14.5); WBC 5.7 10x3/uL (4.8-10.8)
[2018-01-08 04:51] LABS: PLATELET COUNT 79 10x3/uL (130-400)
[2018-01-08 05:08] LABS: ALBUMIN 3.3 g/dL (3.4-5.0); ALKALINE PHOSPHATASE 41 U/L (46-116); ALT (SGPT) 11 U/L (10-68); CALC OSMOLALITY 280 mosm/kg (275-300); CALCIUM 8.2 mg/dL (8.5-10.1); CARBON DIOXIDE 31.4 mmol/L (21.0-32.0); CHLORIDE - SERUM 105 mmol/L (98-107); CREATININE - SERUM 0.6 mg/dL (0.6-1.3); GLUCOSE 132 mg/dL (74-106); POTASSIUM - SERUM 3.2 mmol/L (3.5-5.1); PROTEIN - SERUM 5.5 g/dL (6.4-8.2); SODIUM 141 mmol/L (136-145); UREA NITROGEN 8 mg/dL (7-18); eGFR NON AFRICAN AMERICAN > 90 mL/min (90-120)
[2018-01-09 03:00] VITALS: BP 110/54
[2018-01-09 03:26] LABS: BASOPHILS 0 % (0-2); EOSINOPHILS 1.7 % (0-7); HEMATOCRIT 31.9 % (42.0-54.0); HEMOGLOBIN 10.2 g/dL (13.5-17.5); IMMATURE GRANULOCYTES 0.4 % (0-5); LYMPHOCYTES 25.7 % (15-50); MCH 29.7 pg (26.0-34.0); MCV 92.7 fL (80.0-100.0); MEAN PLATELET VOLUME 10.6 fL (7.4-10.4); MONOCYTES 7.7 % (2-11); NEUTROPHILS 64.5 % (40-80); PLATELET COUNT 76 10x3/uL (130-400); RBC 3.44 10x6/uL (4.20-6.10); RDW 16.1 % (11.5-14.5); WBC 5.2 10x3/uL (4.8-10.8)
[2018-01-09 03:40] LABS: ALKALINE PHOSPHATASE 42 U/L (46-116); BILIRUBIN - TOTAL 1.04 mg/dL (0.2-1.3); CALCIUM 7.8 mg/dL (8.5-10.1); CARBON DIOXIDE 30.2 mmol/L (21.0-32.0); CHLORIDE - SERUM 103 mmol/L (98-107); CREATININE - SERUM 0.7 mg/dL (0.6-1.3); GLUCOSE 144 mg/dL (74-106); PROTEIN - SERUM 5.4 g/dL (6.4-8.2); SODIUM 142 mmol/L (136-145); eGFR NON AFRICAN AMERICAN > 90 mL/min (90-120)
[2018-01-09 03:41] LABS: ALT (SGPT) 8 U/L (10-68); CALC OSMOLALITY 284 mosm/kg (275-300); POTASSIUM - SERUM 3.1 mmol/L (3.5-5.1); UREA NITROGEN 11 mg/dL (7-18)
[2018-01-09 07:00] VITALS: BP 118/53
[2018-01-09 11:00] VITALS: BP 124/59
[2018-01-09 21:03] VITALS: BP 123/49
[2018-01-10] VITALS (8 sets, daily range): BP systolic 108–128; BP diastolic 46–69
[2018-01-10 10:12] LABS: BASOPHILS 0.2 % (0-2); EOSINOPHILS 1.3 % (0-7); HEMATOCRIT 31.7 % (42.0-54.0); HEMOGLOBIN 10.1 g/dL (13.5-17.5); LYMPHOCYTES 26.3 % (15-50); MCH 29.7 pg (26.0-34.0); MCHC 31.9 g/dL (31.0-37.0); MCV 93.2 fL (80.0-100.0); MEAN PLATELET VOLUME 10.5 fL (7.4-10.4); MONOCYTES 11.8 % (2-11); NEUTROPHILS 60.4 % (40-80); PLATELET COUNT 91 10x3/uL (130-400); RDW 16.1 % (11.5-14.5); WBC 5.2 10x3/uL (4.8-10.8)
[2018-01-10 10:26] LABS: CALC OSMOLALITY 283 mosm/kg (275-300); CALCIUM 8.1 mg/dL (8.5-10.1); CARBON DIOXIDE 30.9 mmol/L (21.0-32.0); CHLORIDE - SERUM 105 mmol/L (98-107); CREATININE - SERUM 0.7 mg/dL (0.6-1.3); GLUCOSE 131 mg/dL (74-106); MAGNESIUM - SERUM 1.7 mg/dL (1.8-2.4); PHOSPHOROUS 2.4 mg/dL (2.5-4.9); SODIUM 142 mmol/L (136-145); UREA NITROGEN 11 mg/dL (7-18); eGFR NON AFRICAN AMERICAN > 90 mL/min (90-120)
[2018-01-11 04:29] VITALS: BP 116/55
[2018-01-11 06:35] LABS: BASOPHILS 0.2 % (0-2); EOSINOPHILS 1.7 % (0-7); HEMATOCRIT 32.3 % (42.0-54.0); HEMOGLOBIN 10.3 g/dL (13.5-17.5); IMMATURE GRANULOCYTES 0.2 % (0-5); LYMPHOCYTES 29.2 % (15-50); MCH 29.6 pg (26.0-34.0); MCHC 31.9 g/dL (31.0-37.0); MCV 92.8 fL (80.0-100.0); MEAN PLATELET VOLUME 9.1 fL (7.4-10.4); MONOCYTES 9.6 % (2-11); NEUTROPHILS 59.1 % (40-80); PLATELET COUNT 91 10x3/uL (130-400); RBC 3.48 10x6/uL (4.20-6.10); RDW 16.2 % (11.5-14.5); WBC 5.3 10x3/uL (4.8-10.8)
[2018-01-11 06:55] LABS: CALC OSMOLALITY 281 mosm/kg (275-300); CALCIUM 8.2 mg/dL (8.5-10.1); CARBON DIOXIDE 28.4 mmol/L (21.0-32.0); CHLORIDE - SERUM 103 mmol/L (98-107); CREATININE - SERUM 0.6 mg/dL (0.6-1.3); GLUCOSE 139 mg/dL (74-106); MAGNESIUM - SERUM 1.9 mg/dL (1.8-2.4); PHOSPHOROUS 2.2 mg/dL (2.5-4.9); SODIUM 141 mmol/L (136-145); UREA NITROGEN 11 mg/dL (7-18); eGFR NON AFRICAN AMERICAN > 90 mL/min (90-120)
[2018-01-11 06:59] LABS: POTASSIUM - SERUM 2.8 mmol/L (3.5-5.1)
[2018-01-11 08:40] VITALS: BP 106/66
[2018-01-11 12:36] VITALS: BP 120/50
[2018-01-11 16:56] VITALS: BP 100/61
[2018-01-11 20:27] VITALS: BP 116/54
[2018-01-12 00:22] VITALS: BP 105/49
[2018-01-12 07:04] LABS: BASOPHILS 0.2 % (0-2); EOSINOPHILS 1.1 % (0-7); HEMATOCRIT 32.5 % (42.0-54.0); HEMOGLOBIN 10.3 g/dL (13.5-17.5); IMMATURE GRANULOCYTES 0.4 % (0-5); LYMPHOCYTES 36.6 % (15-50); MCH 29.8 pg (26.0-34.0); MCHC 31.7 g/dL (31.0-37.0); MCV 93.9 fL (80.0-100.0); MEAN PLATELET VOLUME 9.8 fL (7.4-10.4); NEUTROPHILS 46.7 % (40-80); RBC 3.46 10x6/uL (4.20-6.10); RDW 16.3 % (11.5-14.5); WBC 5.3 10x3/uL (4.8-10.8)
[2018-01-12 07:05] LABS: PLATELET COUNT 116 10x3/uL (130-400)
[2018-01-12 07:06] LABS: CALC OSMOLALITY 281 mosm/kg (275-300); CALCIUM 8.2 mg/dL (8.5-10.1); CARBON DIOXIDE 29.5 mmol/L (21.0-32.0); CHLORIDE - SERUM 103 mmol/L (98-107); CREATININE - SERUM 0.7 mg/dL (0.6-1.3); GLUCOSE 146 mg/dL (74-106); SODIUM 140 mmol/L (136-145); UREA NITROGEN 13 mg/dL (7-18); eGFR NON AFRICAN AMERICAN > 90 mL/min (90-120)
[2018-01-12 08:26] VITALS: BP 116/51
[2018-01-12 12:00] VITALS: BP 126/72
[2018-01-12 16:14] VITALS: BP 116/54
[2018-01-12 21:12] VITALS: BP 113/55
[2018-01-13 08:38] VITALS: BP 102/45
[2018-01-13 09:47] LABS: BASOPHILS 0 % (0-2); EOSINOPHILS 1.1 % (0-7); HEMATOCRIT 32.9 % (42.0-54.0); HEMOGLOBIN 10.5 g/dL (13.5-17.5); IMMATURE GRANULOCYTES 0.4 % (0-5); LYMPHOCYTES 29.3 % (15-50); MCH 29.7 pg (26.0-34.0); MCHC 31.9 g/dL (31.0-37.0); MCV 93.2 fL (80.0-100.0); MEAN PLATELET VOLUME 9.9 fL (7.4-10.4); MONOCYTES 14.2 % (2-11); PLATELET COUNT 117 10x3/uL (130-400); RBC 3.53 10x6/uL (4.20-6.10); RDW 16.3 % (11.5-14.5); WBC 4.6 10x3/uL (4.8-10.8)
[2018-01-13 12:23] VITALS: BP 117/50
[2018-01-13] MEDS ORDERED: MUCINEX DM ER1 EAC1 PO (13:17)
[2018-01-13] MEDS ORDERED: NYSTATIN1 PWD TOPICAL (13:18)
[2018-01-13] MEDS ORDERED: BUMEX2 MG PO (13:18)
[2018-01-13] MEDS ORDERED: FOLIC ACID1 MG PO (13:18)
[2018-01-13] MEDS ORDERED: CALMOSEPTINE OI71 GM TOPICAL (13:18)
[2018-01-13] MEDS ORDERED: ATROVENT 0.02%2.5 ML UPD (13:20)
== END 2018-01-13 18:33 | DRG 853 ==
LOC: D.MS 17:33 → D.ICU 17:33 → D.MS 01-09 16:36
PROVIDERS: Family Medicine; Internal Medicine Hematology & Oncology; Internal Medicine Nephrology; Internal Medicine Pulmonary Disease; Radiology Diagnostic Radiology; Specialist
PROC: 06H03DZ Insertion of Intraluminal Device into Inferior Vena Cava, Percutaneous Approach (ICD-10-PCS; principal; 2017-12-30 11:15)
PROC: 07DR3ZX Extraction of Iliac Bone Marrow, Percutaneous Approach, Diagnostic (ICD-10-PCS; 2018-01-07)
DX: A41.51 Sepsis due to Escherichia coli [E. coli] (principal); R65.21 Severe sepsis with septic shock; R57.0 Cardiogenic shock; I26.99 Other pulmonary embolism without acute cor pulmonale; J96.01 Acute respiratory failure with hypoxia; E43 Unspecified severe protein-calorie malnutrition; C15.9 Malignant neoplasm of esophagus, unspecified; I82.403 Acute embolism and thrombosis of unspecified deep veins of lower extremity, bilateral; N39.0 Urinary tract infection, site not specified; J44.1 Chronic obstructive pulmonary disease with (acute) exacerbation; E87.2 Acidosis; J90 Pleural effusion, not elsewhere classified; I47.1 Supraventricular tachycardia; I95.9 Hypotension, unspecified; E11.9 Type 2 diabetes mellitus without complications; E78.5 Hyperlipidemia, unspecified; Z95.1 Presence of aortocoronary bypass graft; E87.6 Hypokalemia; K59.00 Constipation, unspecified; D69.6 Thrombocytopenia, unspecified; D72.829 Elevated white blood cell count, unspecified; D50.9 Iron deficiency anemia, unspecified; I27.20 Pulmonary hypertension, unspecified; I48.0 Paroxysmal atrial fibrillation